=== PATIENT | male | born 1960 | race Caucasian/White ===

== ENCOUNTER 2023-01-24 20:05 | Inpatient (IN) ==
[2023-01-24 21:02] LABS: Appearance Urine Cloudy (Clear); Color Urine Red
[2023-01-24 21:05] LABS: Bacteria Urine Negative (Negative); RBC Urine >30 /hpf (0-4); WBC Urine >30 /hpf (0-5)
[2023-01-24 21:14] LABS: Albumin Globulin Ratio 1.8 (0.9-2); Albumin Level 4.3 gm/dl (3.4-5.0); BUN Creatinine Ratio 16.2 (10-20); Bilirubin,Total 0.4 mg/dl (0.2-1.0); Calcium 9.5 mg/dl (8.6-10.3); Creatinine Clr Calc Pharmacy 85.3 ml/min; Est GFR (African American) 93.6 ml/min; Est GFR (Non-African American) 80.7 ml/min; Globulin 2.4 gm/dl (2.5-4.0); Potassium 3.9 mmol/L (3.5-5.1); Total Protein 6.7 gm/dl (6.0-8.3)
[2023-01-24 21:15] LABS: Basophils # (auto) 0.07 K/uL (0.00-0.20); Basophils % (auto) 0.6 %; Eosinophils # (auto) 0.19 K/uL (0.00-0.50); Eosinophils % (auto) 1.6 %; Hemoglobin 15.2 g/dl (14.0-18.0); Immature Granulocytes # (auto) 0.04 K/uL (0.01-0.20); Immature Granulocytes % (auto) 0.3 %; Lymphocytes # (auto) 1.29 K/uL (1.20-3.40); Lymphocytes % (auto) 10.7 %; Mean Corpuscular Hemoglobin 31.7 pg (25.0-34.0); Mean Corpuscular Hgb Conc 34.5 g/dL (32.0-36.0); Mean Corpuscular Volume 91.7 fL (80.0-100.0); Mean Platelet Volume 9.1 fL (9.4-12.4); Monocytes % (auto) 6.6 %; Neutrophils % (auto) 80.2 %; Platelet Count 211 K/uL (130-400); RDW Coefficient of Variation 12.6 % (11.5-14.5); RDW Standard Deviation 42.4 fL (36.4-46.3); White Blood Count 12.09 K/ul (4.8-10.8)
--- NOTE | 2023-01-24 21:16 | Emergency Department Note ---
Impression & Plan Gross hematuria ED Provider Note HISTORY OF PRESENT ILLNESS: Patient is a 62-year-old male presenting with hematuria. Patient reports that he woke up today and was having some suprapubic abdominal pain and had a few episodes of passing small clots in his urine. He states that he continued to have some blood-tinged urine and passage of blood clots throughout the day. However, about an hour prior to calling 911 he was unable to void for over an hour. He states he felt like the need to urinate but was unable to. On arrival to the ER, the patient was able to urinate and passed a large blood clot. Patient reports he had a TURP procedure done a number of years ago. He is not from the area and is in the area visiting family. He states that he has previously required a Souza catheter for this. He is not on anticoagulation. Denies any fevers. Reports feeling back to his normal self at this time. ROS: as above PHYSICAL EXAM: Constitutional: Patient appears in no acute distress. HENT: Head: Normocephalic and atraumatic. Eyes: EOMI, PERRL Mouth/Throat: Mucous membranes moist. Neck: Trachea midline. Neck supple. Cardiovascular: RRR, No murmurs, rubs or gallops. Intact distal pulses. Pulmonary/Chest: No respiratory distress. Breath sounds clear and equal bilaterally. No wheezes or rales. Abdominal: Abdomen soft, no tenderness, rebound or guarding. Musculoskeletal: No edema, tenderness or deformity noted. Skin: Warm and dry. No rash, erythema, pallor or cyanosis Psychiatric: Appropriate mood and affect for situation. Neurological: Alert and keenly responsive. CN II-XII grossly intact, moving all extremities equally and fully. MDM: - Vitals signs showed hypertension - History obtained via patient. Patient presents with venkat hematuria. Patient reports he was having some suprapubic abdominal tenderness today and had a few episodes of hematuria and passing small clots in his urine throughout the day. He states that earlier this evening he felt like he needed to void but was unable to for over an hour and he called 911. He denies any recent dysuria. Denies any fevers. He is in the area visiting family. He is from [place]. He is not on any anticoagulation. - Chronic conditions affecting care: None - Differential diagnoses include, but are not limited to: Bladder mass; prostatitis; UTI; kidney stone - Order placed for continuous cardiac monitoring. At this time, monitor showed rate of 81 bpm with normal sinus rhythm, per my interpretation. - External medical records reviewed. EMS run sheet was reviewed. Patient was vitally stable in route. No medications were given prehospital. - Laboratory workup interpreted by myself showed leukocytosis (WBC 12.09); normal PT/INR; hyponatremia (Na 132); normal creatinine; normal lipase - Souza catheter was placed and manual irrigation was performed. However, patient continued to clot the [address] way [address]. A 3 way souza was then ordered for CBI. - UA negative for infection - CT abdomen/pelvis wo contrast showed nonobstructing right renal calculus per radiology - Discussed case with Charles Dove PA-C with urology. Plans to irrigate with CBI. Recommends medicine admission - Discussion was had with certified caregiver about patient's case and need for admission - Hospitalist consulted for admission - [facility] ASSESSMENT AND PLAN: Diagnosis: Gross hematuria Plan: Admit Past Med/Surg History Social History Smoking Status: Current every day smoker Tobacco Type: Cigarettes Preferred Language: Yakut Feels Safe at Home: Yes Results & Data (ED) Vital Signs Vital Signs - 24 hr 01/24/23 20:43 01/24/23 20:43 01/24/23 20:44 Temperature 36.6 C Temperature Source Oral Pulse Rate 76 81 Respiratory Rate 18 Respiratory Effort / Characteristics Non-Labored Spontaneous Respiratory Depth Normal Respiratory Pattern Regular Blood Pressure 144/99 H Blood Pressure Mean 114 Blood Pressure Position Lying Pulse Oximetry 97 97 Oxygen Delivery Method Room Air Room Air Sepsis Recent Fever Within 48 Hours No Sepsis New/Unexplained Change in Mental Status No Sepsis Action Taken by Nursing No Action Required Laboratory Data 01/24/23 20:44 01/24/23 20:44 Lab Results 01/24/23 01/24/23 Range/Units 20:11 20:44 WBC 12.09 H (4.8-10.8) K/ul RBC 4.80 (4.70-6.10) M/uL Hgb 15.2 (14.0-18.0) g/dl Hct 44.0 (42.0-52.0) % MCV 91.7 (80.0-100.0) fL MCH 31.7 (25.0-34.0) pg MCHC 34.5 (32.0-36.0) g/dL RDW Std Deviation 42.4 (36.4-46.3) fL RDW Coeff of Aditi 12.6 (11.5-14.5) % Plt Count 211 (130-400) K/uL MPV 9.1 L (9.4-12.4) fL Immature Gran % (Auto) 0.3 % Neut % (Auto) 80.2 % Lymph % (Auto) 10.7 % Creek % (Auto) 6.6 % Eos % (Auto) 1.6 % Baso % (Auto) 0.6 % Neut # (Auto) 9.70 H (1.40-6.50) K/uL Lymph # (Auto) 1.29 (1.20-3.40) K/uL [place] # (Auto) 0.80 H (0.11-0.59) K/uL Eos # (Auto) 0.19 (0.00-0.50) K/uL Baso # (Auto) 0.07 (0.00-0.20) K/uL Immature Gran # (Auto) 0.04 (0.01-0.20) K/uL PT 10.8 (9.0-12.0) Seconds INR 1.0 (0.9-1.1) Sodium 132 L (136-145) mmol/L Potassium 3.9 (3.5-5.1) mmol/L Chloride 101 (98-107) mmol/L Carbon Dioxide 25 (21-32) mmol/L Anion Gap 6 (3-11) BUN 16 (6-23) mg/dl Creatinine 0.99 (0.6-1.4) mg/dl Est Cr Clr Drug Dosing 85.3 ml/min Est GFR ( Amer) 93.6 ml/min Est GFR (Non-Af Amer) 80.7 ml/min BUN/Creatinine Ratio 16.2 (10-20) Glucose 136 H (70-99(Fasting)) mg/dl Calcium 9.5 (8.6-10.3) mg/dl Total Bilirubin 0.4 (0.2-1.0) mg/dl AST 21 (13-39) U/L ALT 21 (7-52) U/L Alkaline Phosphatase 76 (34-104) U/L Total Protein 6.7 (6.0-8.3) gm/dl Albumin 4.3 (3.4-5.0) gm/dl Globulin 2.4 L (2.5-4.0) gm/dl Albumin/Globulin Ratio 1.8 (0.9-2) Lipase 52 (11-82) U/L Urine Color Red Urine Appearance Cloudy A (Clear) Urine pH (4.5-7.5) Ur Specific [place] 1.020 (1.000-1.030) Urine Protein (Negative) Urine Glucose (UA) (Negative) Urine Ketones (Negative) Urine Blood (Negative) Urine Nitrite (Negative) Urine Bilirubin (Negative) Urine Urobilinogen (Negative) Ur Leukocyte Esterase (Negative) Urine RBC >30 H (0-4) /hpf Urine WBC >30 H (0-5) /hpf Ur Epithelial Cells 5-10 H (0-5) /lpf Urine Bacteria Negative (Negative) Discharge Plan Visit Data Chief Complaint: Hematuria Stated Complaint: GROIN PAIN, UNABLE TO URINATE, PASSING BLOOD CLOT ED Provider: Lauren Farooq Discharge Problem: Gross hematuria Forms Stand Alone Forms: My [facility] Referrals Referrals: PCP,NO [Primary Care Provider] -
[2023-01-24 21:30] LABS: Prothrombin Time 10.8 Seconds (9.0-12.0)
--- NOTE | 2023-01-24 22:57 | CT Scan Report ---
Exam(s): CT ABDOMEN + PELVIS Without Contrast EXAM: CT Abdomen and Pelvis Without Intravenous Contrast CLINICAL HISTORY: Reason for exam: gross hematuria. TECHNIQUE: Axial computed tomography images of the abdomen and pelvis without intravenous contrast. Automated exposure control was utilized for the study. A dose lowering technique was utilized adhering to the principles of ALARA. COMPARISON: No relevant prior studies available. FINDINGS: Lung bases: Bibasilar atelectasis. ABDOMEN: Liver: Unremarkable. Gallbladder and bile ducts: Prior cholecystectomy. No ductal dilation. Pancreas: Unremarkable. No ductal dilation. Spleen: Unremarkable. No splenomegaly. Adrenals: Unremarkable. No mass. Kidneys and ureters: Punctate nonobstructing right renal calculus. No hydronephrosis. Stomach and bowel: Diverticulosis without evidence of acute diverticulitis. No obstruction. PELVIS: Appendix: No findings to suggest acute appendicitis. Bladder: Jara catheter within the urinary bladder. The bladder is decompressed. The prostate measures 7.0 x 6.4 cm. No stones. Reproductive: Unremarkable as visualized. ABDOMEN and PELVIS: Intraperitoneal space: Unremarkable. No free air. No significant fluid collection. Bones/joints: No acute fracture. No dislocation. Soft tissues: Small fat-containing inguinal hernias, left greater than right. Vasculature: Unremarkable. No abdominal aortic aneurysm. Lymph nodes: Unremarkable. No enlarged lymph nodes. Other findings: 5 mm hyperattenuating right inferior pole proteinaceous cyst. No follow-up imaging required. IMPRESSION: Punctate nonobstructing right renal calculus. No hydronephrosis. Electronically signed by: Nenita Kemp MD 01/24/23 22:56 PM
--- NOTE | 2023-01-24 23:12 | Urology Consultation ---
Date of Consultation January 24, 2023 Assessment & Plan (1) Gross hematuria: I discussed with the treating emergency room physician. The patient is being admitted on the hospitalist service. We recommend proceeding as follows: As the patient's Jara catheter did not appear entirely patent at the time of my exam I manually flushed and irrigated the catheter with nearly 1 L of sterile water. The catheter flushed and irrigated easily and I was able retrieve a large amount of blood clots. I continued this process until no more blood clots were able to be retrieved that the patient's urine was relatively clear. Following this procedure the Jara catheter was draining appropriately with nearly clear urine with no visible blood clots. Patient noted that his bladder felt empty at this time We will maintain the patient's Jara catheter for the present time. The clots again manual irrigation and flushing attempts can be performed by nursing staff. If the patient's Jara catheter does clogged again, however we will consider placing the patient on continuous bladder irrigation Serial labs to be followed Antiplatelets and anticoagulants should be held as should chemical means of DVT prophylaxis due to hematuria Would be prudent to place patient on antibiotics due to the Jara catheter insertion and manipulation of his bladder I discussed with the patient is unclear what is causing the patient's bleeding. I also discussed with the patient that I am uncertain how long his h ospitalization will be and will be dependent on how his urine clears. I also discussed with the patient that as he is from out of town it is imperative that he obtain follow-up with a urologist as an outpatient. 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 Patient reports he presented to the emergency department at [facility] secondary to gross hematuria. Patient notes that he had a transurethral resection of his prostate gland approximate 4 years ago and this was performed at a hospital in [place], [place]. Patient notes that since his TURP procedure he has been able to urinate without difficulty but he has since had periodic episodes of kidney stones. The patient notes that he does have hematuria with occasional blood clots when he does pass kidney stones. Patient says that he was doing fine in his usual state of health urinating without difficulty or hematuria yesterday but this morning the patient had gross hematuria and he was crossing some what he describes as large blood clots. The patient did note some flank/abdominal pressure as though he was going to pass a kidney stone. Patient notes after his initial episode of gross hematuria his urine cleared but approximate 6 hours later his hematuria returned and he felt as though he was having difficulty urinating so he presented to the emergency department. He denies any nausea or vomiting. He denies any fevers, shakes, or chills. nce arrival to the emergency department patient has had labs and imaging which I independently reviewed. CT scan of the abdomen pelvis showed a punctate nonobstructing right renal kidney stone without hydronephrosis. The patient's bladder appeared decompressed with a Jara catheter. The patient did have a prostate gland measuring 7.0 x 6.4 cm. Labs included CBC her white blood cell count was 12.0. Hemoglobin, hematocrit, platelet count were normal. Coagulation studies were normal. Chemistry profile showed sodium was 132 with a normal potassium. BUN and creatinine were normal. The urinalysis showed greater than 30 white blood cells per high-power field along with greater than 30 red blood cells per high-power field. There is no bacteria on the study. Due to the gross hematuria noted leukocyte Estrace and nitrates could not be assessed on this study. Since arrival to the emergency department the patient has had a Jara catheter placed. It has been hand irrigated by nursing staff and has clogged on 2 occasions. At the time of my interview the patient was resting comfortably in bed and was in no distress. Patient History Social History Smoking Status: Current every day smoker Tobacco Type: Cigarettes Preferred Language: Greek Feels Safe at Home: Yes Review of Systems Constitutional: no fever and no chills Ear, Nose, Mouth, Throat: no hearing loss Respiratory: no cough Cardiovascular: no chest pain Gastrointestinal: + abdominal pain (Suprapubic discomfort) Genitourinary: + as per Subjective / HPI Musculoskeletal: + back pain (Resolved) Integumentary: no rash Neurologic: no localized weakness Physical Exam Constitutional: WD/WN, vitals as above Eyes: eyes not dysmorphic ENMT: Ears: no hearing impairment and no external ear abnormality Mouth: no oropharynx abnormality Neck: trachea midline Respiratory: normal respiratory effort; no respiratory distress and no labored breathing Cardiovascular: Rate/Rhythm: regular rate and regular rhythm Gastrointestinal (Abdomen): Abdomen is soft and nondistended. Patient did have some minor suprapubic discomfort with palpation Musculoskeletal: No calf tenderness Skin: no rashes Neurologic: moves all extremities Psychiatric: A+Ox3, euthymic affect Genitourinary: No CVA tenderness noted with percussion. Patient had a Jara catheter in place. There are some visible blood clots in the tubing. The urine appeared grossly bloody. The catheter did not appear patent at the time of my exam. Results & Data Vital Signs (Past 12 Hours) Vital Signs Temp Pulse Resp BP Pulse Ox O2 Del Method 01/24/23 20:44 81 01/24/23 20:43 97 Room Air 01/24/23 20:43 36.6 C 76 18 144/99 H 97 Room Air PG Care Time/CCT Total # of Minutes Spent Total Time Spent with Patient: Total time spent is greater than 50% in coordination of care (as documented) at patient's floor/unit and/or counseling patient: Coding Level of Care Code 62045 IN/OBS CONSULT LVL 5,80M Diagnoses Gross hematuria R31.0
--- NOTE | 2023-01-25 00:38 | History & Physical Report ---
Date of Service January 25, 2023 Assessment & Plan (1) Gross hematuria: Plan: 62-year-old male history of anxiety, GERD and history of shingles in knee presents with gross hematuria. Gross hematuria CT scan showing punctate nonobstructing right renal calculus. No hydronephrosis Patient states he has TURP about 4 to 5 years ago Hemoglobin is stable S/p Jara in the ER and draining pink color Passed blood clots Currently no abdominal pain N.p.o. IV fluids IV Dilaudid as needed Urology consulted Blood consent obtained Will follow H&H Monitoring medical floor Anxiety On Bupropion as per patient GERD On Pepcid Arthritis Uses Celebrex. Tobacco abuse Needs counseling DVT prophylaxis SCDs Disposition Medical floor Full code History of Present Illness Chief Complaint: Gross hematuria Primary Care Provider: NO PCP 62-year-old male with history of anxiety, GERD and history of shingles in knee presents with gross hematuria. Patient is coming from [facility]. He is driving a semitruck. He thinks he passed kidney stones in the morning. Around noon time he noticed some blood trickling from his urine. He is not making much urine. Tried to keep himself hydrated. But he was having blood in the urine every 15 minutes. By 2:30 PM the pain got more intense. As he was getting p rogressively worse he came to the ER. In the ER he passed a lot of clots. He was placed on Jara and manually irrigated. He is having some blood in the catheter. Currently pain is subsided. Denies any fevers. Denies any chest pain or shortness of breath. No headache. States has some chronic cough from his GERD. Currently no nausea. Normal bowel movements. Resting comfortably and hemodynamically stable. Past medical history. As mentioned above. Past surgical history. TURP. Colonoscopy with polypectomy. 2 back surgeries. Cholecystectomy. Tonsillectomy. Social history. Smokes 1 pack of cigarettes daily from age 15. Alcohol occasional. Denies any drug use. Family history. Father mother and sister has high blood pressure Allergies Allergy/AdvReac Type Severity Reaction Status Date / Time Penicillins Allergy Hives Verified 01/25/23 01:11 Sulfa (Sulfonamide AdvReac FACIAL Verified 01/25/23 01:13 Antibiotics) PARALYSIS Home Medications Medication Instructions Recorded Confirmed Type bupropion HCl 300 mg 24 hr tablet, 300 mg PO DAILY 11/26/23 11/26/23 History extended release famotidine 20 mg tablet (Pepcid) 20 mg PO DAILY 01/25/23 01/25/23 History Past Med/Surg History Social History Smoking Status: Current every day smoker Tobacco Type: Cigarettes Cigarettes Per Day: 1 pack; Do You Dip or Chew Tobacco: No; Hx Alcohol Use: Yes Alcohol type: hard liquor Hx Substance Use: No Preferred Language: Romanian Communication Ability: Effective Fleet Manager/Dispatch Required: No Beliefs That Will Affect Care: None Current Living Situation: Alone Other Information That Helps Us Care for You: No Feels Safe at Home: Yes Safety Concerns: Feels Safe At This Time Assistive Devices: Glasses Review of Systems Review of Systems: All systems reviewed & are unremarkable except as noted in HPI & below Physical Exam Physical Exam: General- Not in distress Head- atraumatic Eyes- PERRL. ENT- oropharynx clear Neck- supple, no JVD. Lungs- clear to auscultation , no wheezing or crackles. Heart- regular rhythm; no murmur, no gallop. Abdomen- normal bowel sounds, soft, nontender, no distension. Extremities- no pretibial edema, no erythema seen. Neuro- alert, oriented x 3; PERRL no facial palsy; no dysarthria; moves extremities. Skin- warm & dry Results & Data Results & Data Vital Signs (Past 12 Hours) Vital Signs Temp Pulse Pulse Resp BP BP Pulse Ox 01/25/23 00:01 77 18 126/87 97 01/24/23 20:44 81 01/24/23 20:43 97 01/24/23 20:43 36.6 C 76 18 144/99 H 97 O2 Del Method 01/25/23 00:01 Room Air 01/24/23 20:44 01/24/23 20:43 Room Air 01/24/23 20:43 Room Air Diagnostic Findings Laboratory Results WBC 12.09 K/ul (4.8-10.8) H 01/24/23 20:44 RBC 4.80 M/uL (4.70-6.10) 01/24/23 20:44 Hgb 15.2 g/dl (14.0-18.0) 01/24/23 20:44 Hct 44.0 % (42.0-52.0) 01/24/23 20:44 MCV 91.7 fL (80.0-100.0) 01/24/23 20:44 MCH 31.7 pg (25.0-34.0) 01/24/23 20:44 MCHC 34.5 g/dL (32.0-36.0) 01/24/23 20:44 RDW Std Deviation 42.4 fL (36.4-46.3) 01/24/23 20:44 RDW Coeff of Aditi 12.6 % (11.5-14.5) 01/24/23 20:44 Plt Count 211 K/uL (130-400) 01/24/23 20:44 MPV 9.1 fL (9.4-12.4) L 01/24/23 20:44 Immature Gran % (Auto) 0.3 % 01/24/23 20:44 Neut % (Auto) 80.2 % 01/24/23 20:44 Lymph % (Auto) 10.7 % 01/24/23 20:44 Cross % (Auto) 6.6 % 01/24/23 20:44 Eos % (Auto) 1.6 % 01/24/23 20:44 Baso % (Auto) 0.6 % 01/24/23 20:44 Neut # (Auto) 9.70 K/uL (1.40-6.50) H 01/24/23 20:44 Lymph # (Auto) 1.29 K/uL (1.20-3.40) 01/24/23 20:44 Cross # (Auto) 0.80 K/uL (0.11-0.59) H 01/24/23 20:44 Eos # (Auto) 0.19 K/uL (0.00-0.50) 01/24/23 20:44 Baso # (Auto) 0.07 K/uL (0.00-0.20) 01/24/23 20:44 Immature Gran # (Auto) 0.04 K/uL (0.01-0.20) 01/24/23 20:44 PT 10.8 Seconds (9.0-12.0) 01/24/23 20:44 INR 1.0 (0.9-1.1) 01/24/23 20:44 Sodium 132 mmol/L (136-145) L 01/24/23 20:44 Potassium 3.9 mmol/L (3.5-5.1) 01/24/23 20:44 Chloride 101 mmol/L (98-107) 01/24/23 20:44 Carbon Dioxide 25 mmol/L (21-32) 01/24/23 20:44 Anion Gap 6 (3-11) 01/24/23 20:44 BUN 16 mg/dl (6-23) 01/24/23 20:44 Creatinine 0.99 mg/dl (0.6-1.4) 01/24/23 20:44 Est Cr Clr Drug Dosing 85.3 ml/min 01/24/23 20:44 Est GFR ( Amer) 93.6 ml/min 01/24/23 20:44 Est GFR (Non-Af Amer) 80.7 ml/min 01/24/23 20:44 BUN/Creatinine Ratio 16.2 (10-20) 01/24/23 20:44 Glucose 136 mg/dl (70-99(Fasting)) H 01/24/23 20:44 Calcium 9.5 mg/dl (8.6-10.3) 01/24/23 20:44 Total Bilirubin 0.4 mg/dl (0.2-1.0) 01/24/23 20:44 AST 21 U/L (13-39) 01/24/23 20:44 ALT 21 U/L (7-52) 01/24/23 20:44 Alkaline Phosphatase 76 U/L (34-104) 01/24/23 20:44 Total Protein 6.7 gm/dl (6.0-8.3) 01/24/23 20:44 Albumin 4.3 gm/dl (3.4-5.0) 01/24/23 20:44 Globulin 2.4 gm/dl (2.5-4.0) L 01/24/23 20:44 Albumin/Globulin Ratio 1.8 (0.9-2) 01/24/23 20:44 Lipase 52 U/L (11-82) 01/24/23 20:44 Urine Color Red 01/24/23 20:11 Urine Appearance Cloudy (Clear) A 01/24/23 20:11 Urine pH (4.5-7.5) 01/24/23 20:11 Ur Specific [place] 1.020 (1.000-1.030) 01/24/23 20:11 Urine Protein (Negative) 01/24/23 20:11 Urine Glucose (UA) (Negative) 01/24/23 20:11 Urine Ketones (Negative) 01/24/23 20:11 Urine Blood (Negative) 01/24/23 20:11 Urine Nitrite (Negative) 01/24/23 20:11 Urine Bilirubin (Negative) 01/24/23 20:11 Urine Urobilinogen (Negative) 01/24/23 20:11 Ur Leukocyte Esterase (Negative) 01/24/23 20:11 Urine RBC >30 /hpf (0-4) H 01/24/23 20:11 Urine WBC >30 /hpf (0-5) H 01/24/23 20:11 Ur Epithelial Cells 5-10 /lpf (0-5) H 01/24/23 20:11 Urine Bacteria Negative (Negative) 01/24/23 20:11 Impressions Abdomen/Pelvis CT 01/24/23 21:22 Exam(s): CT ABDOMEN + PELVIS Without Contrast EXAM: CT Abdomen and Pelvis Without Intravenous Contrast CLINICAL HISTORY: Reason for exam: gross hematuria. TECHNIQUE: Axial computed tomography images of the abdomen and pelvis without intravenous contrast. Automated exposure control was utilized for the study. A dose lowering technique was utilized adhering to the principles of ALARA. COMPARISON: No relevant prior studies available. FINDINGS: Lung bases: Bibasilar atelectasis. ABDOMEN: Liver: Unremarkable. Gallbladder and bile ducts: Prior cholecystectomy. No ductal dilation. Pancreas: Unremarkable. No ductal dilation. Spleen: Unremarkable. No splenomegaly. Adrenals: Unremarkable. No mass. Kidneys and ureters: Punctate nonobstructing right renal calculus. No hydronephrosis. Stomach and bowel: Diverticulosis without evidence of acute diverticulitis. No obstruction. PELVIS: Appendix: No findings to suggest acute appendicitis. Bladder: Jara catheter within the urinary bladder. The bladder is decompressed. The prostate measures 7.0 x 6.4 cm. No stones. Reproductive: Unremarkable as visualized. ABDOMEN and PELVIS: Intraperitoneal space: Unremarkable. No free air. No significant fluid collection. Bones/joints: No acute fracture. No dislocation. Soft tissues: Small fat-containing inguinal hernias, left greater than right. Vasculature: Unremarkable. No abdominal aortic aneurysm. Lymph nodes: Unremarkable. No enlarged lymph nodes. Other findings: 5 mm hyperattenuating right inferior pole proteinaceous cyst. No follow-up imaging required. IMPRESSION: Punctate nonobstructing right renal calculus. No hydronephrosis. Electronically signed by: Nenita Kemp MD 01/24/23 22:56 PM ECG Additional Comments: ECG. Normal sinus rhythm rate of 75. No acute ST changes seen
[2023-01-25] MEDS: SODIUM CHLORIDE 0.9% 1,000 ML IV SCH ×3 (02:23→19:31)
[2023-01-25 04:37] LABS: Basophils # (auto) 0.04 K/uL (0.00-0.20); Basophils % (auto) 0.5 %; Eosinophils # (auto) 0.22 K/uL (0.00-0.50); Eosinophils % (auto) 2.6 %; Hematocrit (blood only) 43.5 % (42.0-52.0); Hemoglobin 14.5 g/dl (14.0-18.0); Immature Granulocytes # (auto) 0.02 K/uL (0.01-0.20); Immature Granulocytes % (auto) 0.2 %; Lymphocytes # (auto) 2.04 K/uL (1.20-3.40); Lymphocytes % (auto) 24.2 %; Mean Corpuscular Hemoglobin 31.3 pg (25.0-34.0); Mean Corpuscular Hgb Conc 33.3 g/dL (32.0-36.0); Mean Platelet Volume 8.7 fL (9.4-12.4); Monocytes # (auto) 0.73 K/uL (0.11-0.59); Monocytes % (auto) 8.7 %; Neutrophils # (auto) 5.37 K/uL (1.40-6.50); Neutrophils % (auto) 63.8 %; Platelet Count 206 K/uL (130-400); RDW Coefficient of Variation 12.7 % (11.5-14.5); RDW Standard Deviation 43.5 fL (36.4-46.3); Red Blood Count 4.63 M/uL (4.70-6.10); White Blood Count 8.42 K/ul (4.8-10.8)
[2023-01-25 04:51] LABS: BUN Creatinine Ratio 17.3 (10-20); Creatinine Clr Calc Pharmacy 104.3 ml/min; Est GFR (African American) 109.6 ml/min; Est GFR (Non-African American) 94.6 ml/min; Magnesium 1.9 mg/dl (1.7-2.4); Potassium 3.6 mmol/L (3.5-5.1)
--- NOTE | 2023-01-25 08:12 | Electrocardiogram Report ---
Test Reason : Blood Pressure : / mmHG Vent. Rate : 075 BPM Atrial Rate : 075 BPM P-R Int : 148 ms QRS Dur : 082 ms QT Int : 376 ms P-R-T Axes : 052 -22 011 degrees QTc Int : 419 ms Normal sinus rhythm Normal ECG No previous ECGs available Confirmed by Marquis Thayer ([id number]) on 01/25/2023 8:11:41 AM Referred By: REFERRED SELF Confirmed By:Marquis Thayer
[2023-01-25 11:19] LABS: Hematocrit (blood only) 44.6 % (42.0-52.0)
--- NOTE | 2023-01-25 15:28 | Communication Note ---
Date of Service: January 25, 2023 62-year-old gentleman came in with acute hematuria and urinary obstruction. Evaluated by urologist and has been draining almost normal urine during exam ination this afternoon. Remains hemodynamically stable. Will have full progress note tomorrow. Dr Christin Sethi
[2023-01-25 17:30] LABS: Hematocrit (blood only) 43.8 % (42.0-52.0); Hemoglobin 14.8 g/dl (14.0-18.0)
[2023-01-26] MEDS: SODIUM CHLORIDE 0.9% 1,000 ML IV SCH ×3 (03:35→19:52)
[2023-01-26] MEDS: ACETAMINOPHEN 325 MG TAB PO PRN ×2 (07:31→15:38)
[2023-01-26 08:14] LABS: Basophils # (auto) 0.04 K/uL (0.00-0.20); Basophils % (auto) 0.6 %; Eosinophils # (auto) 0.24 K/uL (0.00-0.50); Eosinophils % (auto) 3.4 %; Hematocrit (blood only) 42.8 % (42.0-52.0); Hemoglobin 14.8 g/dl (14.0-18.0); Immature Granulocytes # (auto) 0.02 K/uL (0.01-0.20); Immature Granulocytes % (auto) 0.3 %; Lymphocytes # (auto) 1.72 K/uL (1.20-3.40); Lymphocytes % (auto) 24.5 %; Mean Corpuscular Hemoglobin 32.2 pg (25.0-34.0); Mean Corpuscular Hgb Conc 34.6 g/dL (32.0-36.0); Monocytes # (auto) 0.59 K/uL (0.11-0.59); Monocytes % (auto) 8.4 %; Neutrophils # (auto) 4.42 K/uL (1.40-6.50); Neutrophils % (auto) 62.8 %; Platelet Count 214 K/uL (130-400); RDW Coefficient of Variation 12.9 % (11.5-14.5); RDW Standard Deviation 43.9 fL (36.4-46.3); White Blood Count 7.03 K/ul (4.8-10.8)
[2023-01-26] MEDS: buPROPion XL 300 MG TABCR PO SCH (08:16)
[2023-01-26] MEDS: FAMOTIDINE 20 MG TAB PO SCH (08:16)
[2023-01-26 08:31] LABS: BUN Creatinine Ratio 13.8 (10-20); Calcium 8.7 mg/dl (8.6-10.3); Creatinine Clr Calc Pharmacy 105.6 ml/min; Est GFR (African American) 110.2 ml/min; Est GFR (Non-African American) 95.1 ml/min
--- NOTE | 2023-01-26 11:22 | Urology Progress Note ---
Date of Service January 26, 2023 Assessment & Plan (1) Gross hematuria: Plan 62yo/M with a hx of TURP (4-5 years ago) admitted with gross hematuria. CT scan on arrival demonstrated punctate nonobstructing right renal calculus and no hydronephrosis Afebrile and hemodynamically stable. Labs reviewed WBC 7.03, hemoglobin 14.8, creatinine 0.80. Urine culture 01/24 negative. Jara catheter irrigated today at bedside without difficulty. No clots noted. Currently draining appropriately - urine is pink colored. Maintain catheter for now. OK to hand irrigate as needed for clots, retention, suprapubic pain. We discussed possible voiding trial prior to discharge verse maintaining the catheter. Pt prefers to keep the catheter in place until he gets home in [place]. Encouraged pt to establish care with a urologist for continued care and further workup. Discussed recommendation for possible outpatient cystoscopy to complete hematuria workup. He verbalized understanding. Continue supportive care. Urology will follow. Admission and Anticipated Discharge Date Admission Date: January 25, 2023 Subjective Patient examined at bedside this AM. Awake, resting in bed on arrival. No acute distress. Jara currently intact, draining light red urine. No clots noted at time of exam. Pt reports the catheter was not draining well this morning. Denies any pain or discomfort at present. Denies fevers, chills, nausea, vomiting. Review of Systems Constitutional: as per Subjective / HPI Gastrointestinal: as per Subjective / HPI Genitourinary: + as per Subjective / HPI Physical Exam Constitutional: no acute distress Respiratory: no respiratory distress and no labored breathing Gastrointestinal (Abdomen): Percussion/Palpation: abdomen soft; abdomen nontender Skin: No visible rashes or lesions to exposed skin areas Neurologic: moves all extremities and awake Psychiatric: A+Ox3, euthymic affect Genitourinary: Jara intact, draining light red urine. Results & Data Vital Signs (Past 12 Hours) Vital Signs Temp Pulse Resp BP Pulse Ox O2 Del Method 01/26/23 08:04 36.5 C 64 16 137/91 95 Room Air PG Care Time/CCT Total # of Minutes Spent Total Time Spent with Patient: Total time spent is greater than 50% in coordination of care (as documented) at patient's floor/unit and/or counseling patient: Coding Level of Care Code 54824 SUB INP/OBS CARE 2/35MIN Diagnoses Gross hematuria R31.0
--- NOTE | 2023-01-26 17:11 | Hospitalist Progress Note ---
Date of Service January 26, 2023 Assessment & Plan (1) Gross hematuria: Plan: 62-year-old male history of anxiety, GERD and history of shingles in knee presents with gross hematuria. Gross hematuria CT scan showing punctate nonobstructing right renal calculus. No hydronephrosis Patient states he has TURP about 4 to 5 years ago Hemoglobin is stable S/p Jara in the ER and draining pink color--- the drain is still remains pink Passed blood clots-no more blood clots seen Denies any abdominal pain IV fluids IV Dilaudid as needed Urology consulted-appreciate input and recommendation Clinically much better but is still having significant hematuria We will monitor overnight and if the hematuria disappears he will be going home tomorrow Persisting hematuria Will monitor, required irrigation Seems to be clearing up Anxiety On Bupropion as per patient GERD On Pepcid Arthritis Uses Celebrex. Tobacco abuse Needs counseling DVT prophylaxis SCDs Disposition Medical floor Full code Admission and Anticipated Discharge Date Admission Date: January 25, 2023 Subjective 01/26/2023 The patient was seen and examined in medical floor He has been feeling much better and denies any significant symptoms Hematuria is persisting Review of Systems Review of Systems: All systems reviewed and are unremarkable except as noted below Physical Exam Physical Exam: Lying in bed comfortable Constitutional: well developed, well nourished and + obese; not ill appearing Eyes: PERRL, conjunctivae normal, anicteric sclerae ENMT: external ear and nose normal, oropharynx normal Neck: trachea midline, no thyromegaly Respiratory: no respiratory distress Auscultation: lungs clear to auscultation bilaterally Cardiovascular: Rate/Rhythm: regular rate and regular rhythm; not tachycardic Heart Sounds: normal S1 and normal S2; no murmur Extremities: no edema Gastrointestinal (Abdomen): Inspection/Auscultation: normal bowel sounds; abdomen not distended Percussion/Palpation: abdomen soft; abdomen nontender Musculoskeletal: No acute arthritis involving any joint Neurologic: normal touch/pain/proprioception and moves all extremities; no focal motor deficits Lymphatic: no cervical or axillary lymphadenopathy Results & Data Results & Data Vital Signs (Past 12 Hours) Vital Signs Temp Pulse Resp BP Pulse Ox O2 Del Method 01/26/23 15:53 36.6 C 71 16 144/90 H 97 Room Air 01/26/23 08:04 36.5 C 64 16 137/91 95 Room Air
[2023-01-26] MEDS: HYDROmorphone INJ 0.5 MG/0.5 ML SYR IV PRN (21:04)
[2023-01-27] MEDS: SODIUM CHLORIDE 0.9% 1,000 ML IV SCH ×3 (03:51→20:02)
[2023-01-27] MEDS: HYDROmorphone INJ 0.5 MG/0.5 ML SYR IV PRN (03:52)
[2023-01-27] MEDS: buPROPion XL 300 MG TABCR PO SCH (08:18)
[2023-01-27] MEDS: FAMOTIDINE 20 MG TAB PO SCH (08:19)
[2023-01-27 12:39] LABS: Hematocrit (blood only) 42.1 % (42.0-52.0); Hemoglobin 14.3 g/dl (14.0-18.0); Mean Corpuscular Hemoglobin 31.7 pg (25.0-34.0); Mean Corpuscular Volume 93.3 fL (80.0-100.0); Mean Platelet Volume 8.9 fL (9.4-12.4); Platelet Count 213 K/uL (130-400); RDW Coefficient of Variation 12.8 % (11.5-14.5); RDW Standard Deviation 43.9 fL (36.4-46.3); Red Blood Count 4.51 M/uL (4.70-6.10)
[2023-01-27 12:56] LABS: BUN Creatinine Ratio 14.7 (10-20); Calcium 8.7 mg/dl (8.6-10.3); Creatinine Clr Calc Pharmacy 112.6 ml/min; Est GFR (African American) 113.2 ml/min; Est GFR (Non-African American) 97.6 ml/min; Potassium 3.9 mmol/L (3.5-5.1)
--- NOTE | 2023-01-27 14:25 | Hospitalist Progress Note ---
Date of Service January 27, 2023 Assessment & Plan (1) Gross hematuria: Plan: 62-year-old male history of anxiety, GERD and history of shingles in knee presents with gross hematuria. Gross hematuria CT scan showing punctate nonobstructing right renal calculus. No hydronephrosis Patient states he has TURP about 4 to 5 years ago Hemoglobin is stable S/p Jara in the ER and draining pink color--- the drain is still remains pink Passed blood clots-no more blood clots seen Denies any abdominal pain IV fluids IV Dilaudid as needed Urology consulted-appreciate input and recommendation Clinically much better but is still having significant hematuria We will monitor overnight and if the hematuria disappears he will be going home tomorrow Persisting hematuria Will monitor, required irrigation Still having significant hematuria with clot in the catheter Evaluated by urologist and will need continuous irrigation Hemoglobin has not dropped and will recheck tomorrow Hematuria needs to be controlled and stopped before he can be discharged Anxiety On Bupropion as per patient GERD On Pepcid Arthritis Uses Celebrex. Tobacco abuse Needs counseling DVT prophylaxis SCDs Disposition Medical floor Full code Admission and Anticipated Discharge Date Admission Date: January 25, 2023 Subjective 01/26/2023 The patient was seen and examined in medical floor He has been feeling much better and denies any significant symptoms Hematuria is persisting 01/27/2023 The patient was seen and examined in medical floor He has had more hematuria last night and will need continuous bladder irrigation as per the urologist [place] nauseous this morning but no vomiting Has been complaining of left shoulder and neck pain Review of Systems Review of Systems: All systems reviewed and are unremarkable except as noted below Physical Exam Physical Exam: Lying in bed comfortable Constitutional: well developed, well nourished and + obese; not ill appearing Eyes: PERRL, conjunctivae normal, anicteric sclerae ENMT: external ear and nose normal, oropharynx normal Neck: trachea midline, no thyromegaly Respiratory: no respiratory distress Auscultation: lungs clear to auscultation bilaterally Cardiovascular: Rate/Rhythm: regular rate and regular rhythm; not tachycardic Heart Sounds: normal S1 and normal S2; no murmur Extremities: no edema Gastrointestinal (Abdomen): Inspection/Auscultation: normal bowel sounds; abdomen not distended Percussion/Palpation: abdomen soft; abdomen nontender Musculoskeletal: Movement of the right shoulder is painful and restricted Neurologic: normal touch/pain/proprioception and moves all extremities; no focal motor deficits Lymphatic: no cervical or axillary lymphadenopathy Results & Data Results & Data Vital Signs (Past 12 Hours) Vital Signs Temp Pulse Resp BP Pulse Ox O2 Del Method 01/27/23 07:59 36.6 C 60 16 144/93 H 96 Room Air Laboratory Results Short CBC 01/27/23 Range/Units 12:06 WBC 9.00 (4.8-10.8) K/ul Hgb 14.3 (14.0-18.0) g/dl Hct 42.1 (42.0-52.0) % Plt Count 213 (130-400) K/uL BMP 01/27/23 12:06 Sodium 136 Potassium 3.9 Chloride 105 Carbon Dioxide 27 BUN 11 Creatinine 0.75 Glucose 105 H Calcium 8.7 Medications Administered Current Inpatient Medications Acetaminophen (Acetaminophen 325 Mg Tab) 650 mg PO Q4H PRN PRN Reason: pain/fever Stop: 02/24/23 01:56 Last Admin: 01/26/23 15:38 Dose: 650 mg Bupropion HCl (Bupropion Xl 300 Mg Tabcr) 300 mg PO DAILY BETHANY Stop: 02/25/23 08:59 Last Admin: 01/27/23 08:18 Dose: 300 mg Famotidine (Famotidine 20 Mg Tab) 20 mg PO DAILY BETHANY Stop: 02/25/23 08:59 Last Admin: 01/27/23 08:19 Dose: 20 mg Hydromorphone HCl (Hydromorphone Inj 0.5 Mg/0.5 Ml Syr) 0.5 mg IV Q3H PRN PRN Reason: Pain Stop: 02/08/23 01:56 Last Admin: 01/27/23 03:52 Dose: 0.5 mg Sodium Chloride (Nss) 1,000 mls @ 125 mls/hr IV .Q8H BETHANY Stop: 02/24/23 01:56 Last Admin: 01/27/23 11:45 Dose: 125 mls/hr
--- NOTE | 2023-01-27 14:38 | Urology Progress Note ---
Date of Service January 27, 2023 Assessment & Plan (1) Gross hematuria: Plan 62yo/M with a hx of TURP (4-5 years ago) admitted with gross hematuria. CT scan on arrival demonstrated punctate nonobstructing right renal calculus and no hydronephrosis Afebrile and hemodynamically stable. Labs reviewed WBC 9.0, hemoglobin 14.3, creatinine 0.75. Urine culture 01/24 negative. Catheter was irrigated this morning by nursing staff. Currently draining appropriately - urine is light pink. Maintain catheter for now and continue to monitor. OK to hand irrigate as needed for clots, retention, suprapubic pain. May need to consider CBI. We discussed possible voiding trial prior to discharge verse maintaining the catheter. Pt prefers to keep the catheter in place until he gets home in [place]. Encouraged pt to establish care with a urologist for continued care and further workup. Discussed recommendation for possible outpatient cystoscopy to complete hematuria workup. He verbalized understanding. Continue supportive care. Urology will follow. Admission and Anticipated Discharge Date Admission Date: January 25, 2023 Subjective Patient examined at bedside this AM. Awake, resting in bed on arrival. No acute distress. Catheter irrigated overnight and this morning by nursing staff due to clots. Jara currently intact, draining light pink urine Denies any pain or discomfort at present. Denies fevers, chills, nausea, vomiting. Review of Systems Constitutional: as per Subjective / HPI Gastrointestinal: as per Subjective / HPI Genitourinary: + as per Subjective / HPI Physical Exam Constitutional: no acute distress Respiratory: no respiratory distress and no labored breathing Gastrointestinal (Abdomen): Percussion/Palpation: abdomen soft; abdomen nontender Skin: No visible rashes or lesions to exposed skin areas Neurologic: moves all extremities and awake Psychiatric: A+Ox3, euthymic affect Genitourinary: Jara intact, draining light pink urine Results & Data Vital Signs (Past 12 Hours) Vital Signs Temp Pulse Resp BP Pulse Ox O2 Del Method 01/27/23 07:59 36.6 C 60 16 144/93 H 96 Room Air PG Care Time/CCT Total # of Minutes Spent Total Time Spent with Patient: Total time spent is greater than 50% in coordination of care (as documented) at patient's floor/unit and/or counseling patient: Coding Level of Care Code 68226 SUB INP/OBS CARE 2/35MIN Diagnoses Gross hematuria R31.0
[2023-01-27] MEDS ORDERED: Nursing to Pharmacy Communication SCH (20:30)
[2023-01-28] MEDS: SODIUM CHLORIDE 0.9% 1,000 ML IV SCH ×3 (04:05→22:33)
[2023-01-28 07:51] LABS: Basophils # (auto) 0.06 K/uL (0.00-0.20); Basophils % (auto) 0.4 %; Eosinophils # (auto) 0.27 K/uL (0.00-0.50); Hematocrit (blood only) 44.3 % (42.0-52.0); Hemoglobin 14.8 g/dl (14.0-18.0); Immature Granulocytes # (auto) 0.04 K/uL (0.01-0.20); Immature Granulocytes % (auto) 0.3 %; Lymphocytes # (auto) 1.11 K/uL (1.20-3.40); Lymphocytes % (auto) 8.2 %; Mean Corpuscular Hemoglobin 31.2 pg (25.0-34.0); Mean Corpuscular Hgb Conc 33.4 g/dL (32.0-36.0); Mean Corpuscular Volume 93.5 fL (80.0-100.0); Monocytes # (auto) 1.17 K/uL (0.11-0.59); Monocytes % (auto) 8.6 %; Neutrophils # (auto) 10.94 K/uL (1.40-6.50); Neutrophils % (auto) 80.5 %; Platelet Count 220 K/uL (130-400); RDW Coefficient of Variation 12.7 % (11.5-14.5); RDW Standard Deviation 43.9 fL (36.4-46.3); Red Blood Count 4.74 M/uL (4.70-6.10); White Blood Count 13.59 K/ul (4.8-10.8)
[2023-01-28] MEDS: buPROPion XL 300 MG TABCR PO SCH (08:09)
[2023-01-28] MEDS: FAMOTIDINE 20 MG TAB PO SCH (08:09)
[2023-01-28] MEDS: ACETAMINOPHEN 325 MG TAB PO PRN (08:11)
[2023-01-28 08:17] LABS: BUN Creatinine Ratio 9.2 (10-20); Calcium 8.6 mg/dl (8.6-10.3); Creatinine Clr Calc Pharmacy 111.1 ml/min; Est GFR (African American) 112.5 ml/min; Est GFR (Non-African American) 97.1 ml/min
--- NOTE | 2023-01-28 08:37 | Urology Progress Note ---
Date of Service January 28, 2023 Assessment & Plan (1) Gross hematuria: Plan 62yo/M with a hx of TURP (4-5 years ago) admitted with gross hematuria. CT scan on arrival demonstrated punctate nonobstructing right renal calculus and no hydronephrosis Afebrile and hemodynamically stable. Labs reviewed WBC 13.59, hemoglobin 14.8, creatinine 0.76. Urine culture 01/24 negative. Jara catheter draining appropriately - urine is clear yellow. OK for discharge from perspective. We discussed possible voiding trial prior to discharge verse maintaining the catheter. Pt prefers to maintain the catheter on discharge until her returns home to [place]. Encouraged pt to establish care with a urologist for continued care and further workup. We discussed that our recommendation would be for outpatient cystoscopy to complete hematuria workup. He verbalized understanding. Continue supportive care. Urology will follow peripherally. Please contact us with any further questions, concerns, or changes in patient status. Contacted by nursing this afternoon due to catheter draining with hematuria and some clot. Patient was reassessed. On arrival, the catheter was draining minimal hematuria. I irrigated the catheter at bedside without difficulty. Minimal clot returned with irrigation. The catheter flushed several times without issue. Pt tolerated well. Urine was light pink in color. Recommend continued monitoring and can hand irrigate the catheter as needed. Urology will follow. Admission and Anticipated Discharge Date Admission Date: January 25, 2023 Subjective Patient examined at bedside this AM. Awake, resting in bed on arrival. No acute distress. Jara currently intact, draining clear yellow urine. Has not required manual irrigation since yesterday morning. Denies any pain or discomfort at present. Denies fevers, chills, nausea, vomiting. Review of Systems Constitutional: as per Subjective / HPI Gastrointestinal: as per Subjective / HPI Genitourinary: + as per Subjective / HPI Physical Exam Constitutional: no acute distress Respiratory: no respiratory distress and no labored breathing Gastrointestinal (Abdomen): Percussion/Palpation: abdomen soft; abdomen nontender Neurologic: moves all extremities and awake Psychiatric: A+Ox3, euthymic affect Genitourinary: Jara intact Results & Data Vital Signs (Past 12 Hours) Vital Signs Temp Pulse Resp BP Pulse Ox O2 Del Method 01/28/23 07:39 37.0 C 72 17 125/83 96 Room Air PG Care Time/CCT Total # of Minutes Spent Total Time Spent with Patient: Total time spent is greater than 50% in coordination of care (as documented) at patient's floor/unit and/or counseling patient: Coding Level of Care Code 42411 SUB INP/OBS CARE 2/35MIN Diagnoses Gross hematuria R31.0
--- NOTE | 2023-01-28 15:39 | Hospitalist Progress Note ---
Date of Service January 28, 2023 Assessment & Plan (1) Gross hematuria: Plan: 62-year-old male with PMHx significant for anxiety, GERD and history of shingles admitted with gross hematuria. Pt is from [place] and was passing through the area. 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 No hydronephrosis Patient states he has TURP about 4 to 5 years ago Hemoglobin has remained stable S/p Souza in the ER and draining pink color. Urine has alternated between being clear to occasionally being bright red. Passed blood clots occasionally Denies any abdominal pain IV fluids IV Dilaudid as needed Urine originally with no growth on admission. However, pt with noted slight elevated WBC, monitor at this time Urology consulted-appreciate recs -originally recommending abx on admission -pt would like to continue with souza catheter on d/c back to [place] -urology encouraging pt to establish with urology in [place] Anxiety On Bupropion as per patient, continue GERD On Pepcid, continue Arthritis Uses Celebrex. Tobacco abuse Encourage cessation Diet: Regular DVT prophylaxis: SCDs in setting of gross hematuria CODE STATUS: Full code Dispo: Pt to drive himself back to [place] once stable for discharge (2) Anxiety: (3) GERD (gastroesophageal reflux disease): (4) Tobacco dependence: Admission and Anticipated Discharge Date Admission Date: January 25, 2023 Subjective Pt seen in the PM. Was concerned about hematuria. States that he was seen by Urology earlier in the day. Review of Systems Review of Systems: All systems reviewed & are unremarkable except as noted in Subjective Physical Exam Physical Exam: General: Alert, oriented. No acute distress Skin: No noted rashes or bruises Psych: Appropriate mood and affect Neuro: No gross deficits HEENT: NC/AT Chest: Nontender to palpation. CV: RRR, Resp: Breath sounds clear bilaterally, no increased effort of breathing. Abdomen: Soft, nontender, nondistended. Extremities: No edema in lower extremities bilaterally. Results & Data Results & Data Vital Signs (Past 12 Hours) Vital Signs Temp Pulse Resp BP Pulse Ox O2 Del Method 01/28/23 15:02 37.1 C 85 16 141/87 H 94 Room Air 01/28/23 07:39 37.0 C 72 17 125/83 96 Room Air
[2023-01-29] MEDS ORDERED: SUMAtriptan succinate 50 MG TAB PO STA (05:11)
[2023-01-29] MEDS: SODIUM CHLORIDE 0.9% 1,000 ML IV SCH (05:12)
[2023-01-29 05:38] LABS: Basophils # (auto) 0.06 K/uL (0.00-0.20); Basophils % (auto) 0.3 %; Eosinophils # (auto) 0.04 K/uL (0.00-0.50); Eosinophils % (auto) 0.2 %; Hematocrit (blood only) 44.3 % (42.0-52.0); Hemoglobin 14.8 g/dl (14.0-18.0); Immature Granulocytes # (auto) 0.11 K/uL (0.01-0.20); Immature Granulocytes % (auto) 0.6 %; Lymphocytes # (auto) 1.09 K/uL (1.20-3.40); Lymphocytes % (auto) 6.1 %; Mean Corpuscular Hemoglobin 31.1 pg (25.0-34.0); Mean Corpuscular Hgb Conc 33.4 g/dL (32.0-36.0); Mean Corpuscular Volume 93.1 fL (80.0-100.0); Mean Platelet Volume 8.7 fL (9.4-12.4); Monocytes # (auto) 2.17 K/uL (0.11-0.59); Monocytes % (auto) 12.2 %; Neutrophils # (auto) 14.26 K/uL (1.40-6.50); Neutrophils % (auto) 80.6 %; Platelet Count 213 K/uL (130-400); RDW Coefficient of Variation 12.8 % (11.5-14.5); Red Blood Count 4.76 M/uL (4.70-6.10); White Blood Count 17.73 K/ul (4.8-10.8)
[2023-01-29 05:57] LABS: Albumin Globulin Ratio 1.5 (0.9-2); Albumin Level 3.9 gm/dl (3.4-5.0); BUN Creatinine Ratio 10.5 (10-20); Bilirubin,Total 0.8 mg/dl (0.2-1.0); Calcium 8.7 mg/dl (8.6-10.3); Creatinine Clr Calc Pharmacy 98.2 ml/min; Est GFR (Non-African American) 92.3 ml/min; Globulin 2.6 gm/dl (2.5-4.0); Magnesium 1.8 mg/dl (1.7-2.4); Phosphorus 2.1 mg/dl (2.5-4.9); Potassium 3.8 mmol/L (3.5-5.1); Total Protein 6.5 gm/dl (6.0-8.3)
[2023-01-29] MEDS: FAMOTIDINE 20 MG TAB PO SCH (08:12)
[2023-01-29] MEDS: buPROPion XL 300 MG TABCR PO SCH (08:12)
--- NOTE | 2023-01-29 14:21 | Urology Progress Note ---
Date of Service January 29, 2023 Assessment & Plan (1) Gross hematuria: Plan 62yo/M with a hx of TURP (4-5 years ago) admitted with gross hematuria. CT scan on arrival demonstrated punctate nonobstructing right renal calculus and no hydronephrosis Afebrile and hemodynamically stable. Labs reviewed WBC 17.73, hemoglobin 14.8, creatinine 0.86. Urine culture 01/24 negative. Jara catheter draining appropriately - urine is clear yellow. No hematuria or clots visualized at time of exam. OK for discharge from perspective. Discussed possible voiding trial prior to discharge verse maintaining the catheter. Pt prefers to maintain the catheter on discharge until her returns home to [place]. We discussed option to learn how to self irrigate his catheter as needed. We discussed the risks/benefits. He verbalized understanding and is agreeable. Encouraged pt to establish care with a urologist for continued care and further workup. We discussed that our recommendation would be for outpatient cystoscopy to complete hematuria workup. He verbalized understanding. We reviewed basic catheter care and that the catheter would need to be exchanged monthly if not removed before then. He verbalized understanding. Urology will follow peripherally. Please contact us with any further questions, concerns, or changes in patient status. Admission and Anticipated Discharge Date Admission Date: January 25, 2023 Subjective Patient examined at bedside this afternoon. Awake, resting in bed on arrival. No acute distress. Reports he had a migraine this morning, but is feeling better this afternoon. Jara currently intact, draining yellow urine. No hematuria or clots at time of exam. Has not required manual irrigation since yesterday per his report. Denies any pain or discomfort at present. Denies fevers, chills, nausea, vomiting. Requesting to get a shower today. He would ideally like to be discharged today, however he has to drive back to [place] so would like to see how he feels after his shower. Review of Systems Constitutional: as per Subjective / HPI Gastrointestinal: as per Subjective / HPI Genitourinary: + as per Subjective / HPI Physical Exam Constitutional: no acute distress Respiratory: no respiratory distress and no labored breathing Gastrointestinal (Abdomen): Percussion/Palpation: abdomen soft; abdomen nontender Neurologic: moves all extremities and awake Psychiatric: A+Ox3, euthymic affect Genitourinary: Jara intact Results & Data Vital Signs (Past 12 Hours) Vital Signs Temp Pulse Resp BP Pulse Ox O2 Del Method 01/29/23 07:21 37.2 C 81 16 126/75 98 Room Air 01/29/23 05:00 36.8 C 90 18 132/88 95 Room Air PG Care Time/CCT Total # of Minutes Spent Total Time Spent with Patient: Total time spent is greater than 50% in coordination of care (as documented) at patient's floor/unit and/or counseling patient: Coding Level of Care Code 57859 SUB INP/OBS CARE 2/35MIN Diagnoses Gross hematuria R31.0
[2023-01-29] MEDS ORDERED: SODIUM PHOSPHATE 3 MMOL/1 ML INFUSION IV STA (19:23)
[2023-01-29] MEDS ORDERED: SODIUM PHOSPHATE 24 MMOL in SODIUM CHLORIDE 0.9% 500 ML IV ONE (19:30)
--- NOTE | 2023-01-29 20:15 | Hospitalist Progress Note ---
Date of Service January 29, 2023 Assessment & Plan (1) Gross hematuria: (2) Anxiety: (3) GERD (gastroesophageal reflux disease): (4) Tobacco dependence: Plan 62-year-old male with PMHx significant for anxiety, GERD and history of shingles admitted with gross hematuria. Pt is from [place] and was passing through the area. 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 No hydronephrosis Patient states he has TURP about 4 to 5 years ago Hemoglobin has remained stable S/p Souza in the ER and draining pink color. Urine has alternated between being clear to occasionally being bright red. Passed blood clots occasionally Denies any abdominal pain IV fluids IV Dilaudid as needed Urine originally with no growth on admission. However, pt with noted slight elevated WBC on the and even higher at this time, started on Aztreonam with noted penicillin allergy. Urology consulted-appreciate recs -originally recommending abx on admission -pt would like to continue with suoza catheter on d/c back to [place] -urology encouraging pt to establish with urology in [place] -advised that pt can self irrigate for recurrent clots -stable for discharge from Urology's perspective Anxiety On Bupropion as per patient, continue GERD On Pepcid, continue Arthritis Uses Celebrex. Tobacco abuse Encourage cessation Diet: Regular DVT prophylaxis: SCDs in setting of gross hematuria CODE STATUS: Full code Dispo: Pt to drive himself back to [place] once stable for discharge Admission and Anticipated Discharge Date Admission Date: January 25, 2023 Subjective Pt seen in the AM. Wanted to take a shower. States that he has been having more episodes of the gross hematuria. Notes that he feels achy all over and having shoulder pain. Would like pain medications as needed. Notes he had a migraine overnight. Review of Systems Review of Systems: All systems reviewed & are unremarkable except as noted in Subjective Physical Exam Physical Exam: General: Alert, oriented. No acute distress Skin: No noted rashes or bruises Psych: Appropriate mood and affect Neuro: No gross deficits HEENT: NC/AT Chest: Nontender to palpation. CV: RRR, Resp: Breath sounds clear bilaterally, no increased effort of breathing. Abdomen: Soft, nontender, nondistended. Extremities: No edema in lower extremities bilaterally. Results & Data Results & Data Vital Signs (Past 12 Hours) Vital Signs Temp Pulse Resp BP Pulse Ox O2 Del Method 01/29/23 07:21 37.2 C 81 16 126/75 98 Room Air 01/29/23 05:00 36.8 C 90 18 132/88 95 Room Air
[2023-01-29] MEDS: POT PHOSPHATE MONOBASIC W/ SOD TAB PO SCH (21:13)
[2023-01-29] MEDS: AZTREONAM 2,000 MG in DEXTROSE 5% MINI-B 100 ML IV SCH (21:45)
[2023-01-29] MEDS: ACETAMINOPHEN 325 MG TAB PO PRN (21:48)
[2023-01-30 01:26] LABS: Appearance Urine Cloudy (Clear); Bacteria Urine Automated 1+ (Negative); Bilirubin Urine Negative (Negative); Blood Urine 2+ (Negative); Color Urine Yellow; Epithelial Cell Urine Auto 0-5 /lpf (0-5); Glucose Urine UA Negative (Negative); Ketones Urine Negative (Negative); Leukocyte Esterase Urine 3+ (Negative); Nitrite Urine Positive (Negative); Protein Urine Trace (Negative); Urobilinogen Urine Negative (Negative); WBC Urine Automated >30 /hpf (0-5); pH Urine 6.5 (4.5-7.5)
[2023-01-30] MEDS: AZTREONAM 2,000 MG in DEXTROSE 5% MINI-B 100 ML IV SCH ×2 (03:39→14:05)
[2023-01-30 07:17] LABS: Basophils # (auto) 0.06 K/uL (0.00-0.20); Basophils % (auto) 0.6 %; Eosinophils # (auto) 0.24 K/uL (0.00-0.50); Eosinophils % (auto) 2.4 %; Hematocrit (blood only) 40.1 % (42.0-52.0); Hemoglobin 13.9 g/dl (14.0-18.0); Immature Granulocytes # (auto) 0.03 K/uL (0.01-0.20); Immature Granulocytes % (auto) 0.3 %; Lymphocytes # (auto) 1.71 K/uL (1.20-3.40); Lymphocytes % (auto) 17.1 %; Mean Corpuscular Hemoglobin 32.3 pg (25.0-34.0); Mean Corpuscular Hgb Conc 34.7 g/dL (32.0-36.0); Mean Platelet Volume 8.9 fL (9.4-12.4); Monocytes # (auto) 1.07 K/uL (0.11-0.59); Monocytes % (auto) 10.7 %; Neutrophils # (auto) 6.89 K/uL (1.40-6.50); Neutrophils % (auto) 68.9 %; Platelet Count 212 K/uL (130-400); RDW Coefficient of Variation 12.8 % (11.5-14.5); RDW Standard Deviation 43.9 fL (36.4-46.3); Red Blood Count 4.31 M/uL (4.70-6.10)
[2023-01-30 07:35] LABS: Albumin Globulin Ratio 1.4 (0.9-2); Albumin Level 3.6 gm/dl (3.4-5.0); BUN Creatinine Ratio 12.4 (10-20); Bilirubin,Total 0.5 mg/dl (0.2-1.0); Calcium 8.6 mg/dl (8.6-10.3); Creatinine Clr Calc Pharmacy 87.1 ml/min; Est GFR (African American) 95.9 ml/min; Est GFR (Non-African American) 82.7 ml/min; Globulin 2.6 gm/dl (2.5-4.0); Magnesium 2.1 mg/dl (1.7-2.4); Phosphorus 2.6 mg/dl (2.5-4.9); Potassium 3.5 mmol/L (3.5-5.1); Total Protein 6.2 gm/dl (6.0-8.3)
[2023-01-30] MEDS: CALCIUM CITRATE 950 MG TAB PO SCH ×2 (08:09→14:05)
[2023-01-30] MEDS: POT PHOSPHATE MONOBASIC W/ SOD TAB PO SCH ×2 (08:09→14:05)
[2023-01-30] MEDS: buPROPion XL 300 MG TABCR PO SCH (08:10)
[2023-01-30] MEDS: FAMOTIDINE 20 MG TAB PO SCH (08:10)
--- NOTE | 2023-01-30 10:46 | Urology Progress Note ---
Date of Service January 30, 2023 Assessment & Plan (1) Gross hematuria: Plan 62yo/M with a hx of TURP (4-5 years ago) admitted with gross hematuria. CT scan on arrival demonstrated punctate nonobstructing right renal calculus and no hydronephrosis Pt remains afebrile and hemodynamically stable. Had an elevated WBC yesterday to 17, was started on Aztreonam. Labs reviewed today WBC improved to 10.0 today, hemoglobin 13.9, creatinine 0.97. Urine culture 01/24 negative, repeat pending. Hematuria has cleared. Potential etiologies for hematuria could include bleeding from prostate, bladder tumor, or other. Jara catheter draining appropriately - urine is clear yellow. OK for discharge from perspective. White count has improved today however would continue antibiotics on discharge. Discussed possible voiding trial prior to discharge. Pt prefers to maintain the catheter on discharge until he returns home to [place]. We discussed option to learn how to self irrigate his catheter as needed. We discussed the risks/benefits. He verbalized understanding and is agreeable. Encouraged pt to establish care with a urologist for continued care and further workup. Discussed our recommendation would be for outpatient cystoscopy to complete hematuria workup. We reviewed basic catheter care and that the catheter would need to be exchanged monthly if not removed before then. Patient verbalized understanding, all questions were answered. Urology will follow peripherally. Please contact us with any further questions, concerns, or changes in patient status. Admission and Anticipated Discharge Date Admission Date: January 25, 2023 Subjective Patient examined at bedside this AM. Awake, resting in bed on arrival. No acute distress. Jara currently intact, draining yellow urine. No hematuria or clots at time of exam. Has not required manual irrigation. Denies any pain or discomfort at present. Denies fevers, chills, nausea, vomiting. Review of Systems Constitutional: as per Subjective / HPI Gastrointestinal: as per Subjective / HPI Genitourinary: + as per Subjective / HPI Physical Exam Constitutional: no acute distress Respiratory: no respiratory distress and no labored breathing Gastrointestinal (Abdomen): Percussion/Palpation: abdomen soft; abdomen nontender Neurologic: moves all extremities and awake Psychiatric: A+Ox3, euthymic affect Genitourinary: Jara intact Results & Data Vital Signs (Past 12 Hours) Vital Signs Temp Pulse Resp BP Pulse Ox O2 Del Method 01/30/23 07:14 36.6 C 61 14 116/74 96 Room Air PG Care Time/CCT Total # of Minutes Spent Total Time Spent with Patient: Total time spent is greater than 50% in coordination of care (as documented) at patient's floor/unit and/or counseling patient: Coding Level of Care Code 86550 SUB INP/OBS CARE 2/35MIN Diagnoses Gross hematuria R31.0
--- NOTE | 2023-01-30 15:36 | Discharge Summary ---
Discharge Summary Date of Service January 30, 2023 Notes For Next Care Provider Please ensure Urology followup for outpatient cystoscopy to complete hematuria workup. Urology reviewed basic catheter care with pt and advised that the catheter would need to be exchanged monthly if not removed before then. Medication Changes From Visit Macrobid 100mg BID x 5 days Admission HPI Per Admitting Provider 62-year-old male with history of anxiety, GERD and history of shingles in knee presents with gross hematuria. Patient is coming from [facility]. He is driving a semitruck. He thinks he passed kidney stones in the morning. Around noon time he noticed some blood trickling from his urine. He is not making much urine. Tried to keep himself hydrated. But he was having blood in the urine every 15 minutes. By 2:30 PM the pain got more intense. As he was getting progressively worse he came to the ER. In the ER he passed a lot of clots. He was placed on Souza and manually irrigated. He is having some blood in the catheter. Currently pain is subsided. Denies any fevers. Denies any chest pain or shortness of breath. No headache. States has some chronic cough from his GERD. Currently no nausea. Normal bowel movements. Resting comfortably and hemodynamically stable. Past medical history. As mentioned above. Past surgical history. TURP. Colonoscopy with polypectomy. 2 back surgeries. Cholecystectomy. Tonsillectomy. Social history. Smokes 1 pack of cigarettes daily from age 15. Alcohol occasional. Denies any drug use. Family history. Father mother and sister has high blood pressure Admission Exam Per Admitting Provider General- Not in distress Head- atraumatic Eyes- PERRL. ENT- oropharynx clear Neck- supple, no JVD. Lungs- clear to auscultation , no wheezing or crackles. Heart- regular rhythm; no murmur, no gallop. Abdomen- normal bowel sounds, soft, nontender, no distension. Extremities- no pretibial edema, no erythema seen. Neuro- alert, oriented x 3; PERRL no facial palsy; no dysarthria; moves extremities. Skin- warm & dry Principal Dx & Hospital Course #1 = Principal Diagnosis (1) Gross hematuria: (2) Anxiety: (3) GERD (gastroesophageal reflux disease): (4) Tobacco dependence: Plan 62-year-old male with PMHx significant for anxiety, GERD and history of shingles admitted with gross hematuria. Pt is from [place] and was passing through the area, admitted for further work-up. 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 No hydronephrosis Patient states he has TURP about 4 to 5 years ago Hemoglobin has remained stable, 15.2 -->13.9 on discharge S/p Souza in the ER and draining pink output since then. Urine has alternated between being clear to occasionally being bright red. Passed blood clots occasionally Denies any abdominal pain IV fluids IV Dilaudid as needed Urine originally with no growth on admission. However, pt with noted slight elevated WBC on the 29th and even higher on the 30, >17K Started on Aztreonam with noted penicillin allergy, WBC decreased to normal value on discharge Discharged with Macrobid 100mg BID x 5 days Repeat Cx has since returned with no significant growth. Urology consulted-appreciate recs -Noted potential etiologies for hematuria such as bleeding from prostate vs. bladder tumor vs. other. -Discharge with Souza catheter which was draining appropriately, urine was clear yellow on discharge -Continue antibiotics on discharge. -Pt prefers to maintain the catheter on discharge until he returns home to [place]. -Pt to self irrigate his catheter as needed. He discussed the risks/benefits with urology, verbalized understanding and was agreeable. -Urology encouraged pt to establish care with a urologist for continued care and further workup. -Their recommendation was for outpatient cystoscopy to complete hematuria workup. -Urology reviewed basic catheter care with pt and advised that the catheter would need to be exchanged monthly if not removed before then. Anxiety On Bupropion as per patient, continue GERD On Pepcid, continue Arthritis Uses Celebrex. Tobacco abuse Encourage cessation Discharge Exam General: Alert, oriented. No acute distress Skin: No noted rashes or bruises Psych: Appropriate mood and affect Neuro: No gross deficits HEENT: NC/AT Chest: Nontender to palpation. CV: RRR, Resp: Breath sounds clear bilaterally, no increased effort of breathing. Abdomen: Soft, nontender, nondistended. Extremities: No edema in lower extremities bilaterally. Updated Medication List Medication Instructions Recorded Confirmed Type bupropion HCl 300 mg 24 hr tablet, 300 mg PO DAILY 01/25/23 01/25/23 History extended release famotidine 20 mg tablet (Pepcid) 20 mg PO DAILY 01/25/23 01/25/23 History nitrofurantoin macrocrystal 100 mg 100 mg PO BID #10 caps 01/30/23 Rx capsule Hospital Stay Data Consultations 01/24/23 22:40 Consult Urology Stat 01/24/23 22:45 ED Decision to Admit Stat Diagnostic Imagining Performed 01/24/23 21:22 CT Abd and Pelvis [CT abd pelvis wo con] Stat Abdomen/Pelvis CT 01/24/23 21:22 Exam(s): CT ABDOMEN + PELVIS Without Contrast EXAM: CT Abdomen and Pelvis Without Intravenous Contrast CLINICAL HISTORY: Reason for exam: gross hematuria. TECHNIQUE: Axial computed tomography images of the abdomen and pelvis without intravenous contrast. Automated exposure control was utilized for the study. A dose lowering technique was utilized adhering to the principles of ALARA. COMPARISON: No relevant prior studies available. FINDINGS: Lung bases: Bibasilar atelectasis. ABDOMEN: Liver: Unremarkable. Gallbladder and bile ducts: Prior cholecystectomy. No ductal dilation. Pancreas: Unremarkable. No ductal dilation. Spleen: Unremarkable. No splenomegaly. Adrenals: Unremarkable. No mass. Kidneys and ureters: Punctate nonobstructing right renal calculus. No hydronephrosis. Stomach and bowel: Diverticulosis without evidence of acute diverticulitis. No obstruction. PELVIS: Appendix: No findings to suggest acute appendicitis. Bladder: Souza catheter within the urinary bladder. The bladder is decompressed. The prostate measures 7.0 x 6.4 cm. No stones. Reproductive: Unremarkable as visualized. ABDOMEN and PELVIS: Intraperitoneal space: Unremarkable. No free air. No significant fluid collection. Bones/joints: No acute fracture. No dislocation. Soft tissues: Small fat-containing inguinal hernias, left greater than right. Vasculature: Unremarkable. No abdominal aortic aneurysm. Lymph nodes: Unremarkable. No enlarged lymph nodes. Other findings: 5 mm hyperattenuating right inferior pole proteinaceous cyst. No follow-up imaging required. IMPRESSION: Punctate nonobstructing right renal calculus. No hydronephrosis. Electronically signed by: Nenita Kemp MD 01/24/23 22:56 PM Pending Results Patient Have Any Pending Studies at Discharge: No Discharge Instructions Given to Patient (Per Discharging Provider) Mr Eden, You are being discharged after having extremely bloody urine. You were seen by the urologist and they are recommending discharge with an antibiotic and follow up with a Urologist in [place] for further evaluation and definitive treatment. We discharged you with the antibiotic Macrobid for 5 days. Should your culture come back necesitating changes be made to your medication, we will contact you after discharge. Please keep close follow up with a Urologist and primary care provider as advised especially since you have that souza in. Urology is advising that you change that monthly if not sooner. Please do not hesitate to go to the nearest emergency room should your symptoms worsen or return. Best of luck to you. It was a pleasure taking care of you while you were here. Total Time Total Time Spent Total Time Spent (In Minutes): > 30 minutes
== END 2023-01-30 16:42 | disposition home or self-care (01) | DRG 696 ==
LOC: ED 20:05 → SUATTDRO 01-25 00:32 → EDINP 01-25 00:32 → 3W 01-25 02:00